=== PATIENT | male | born 1960 | race Caucasian/White ===

== ENCOUNTER 2017-12-19 09:12 | Emergency (ER) | payer OTHER ==
[2017-12-19 09:14] VITALS: BP 127/80
[2017-12-19] MEDS: Diphtheria,Pertussis(Acell),Tetanus Vaccine 0.5 ML SDV IM ONE (10:28)
--- NOTE | 2017-12-19 10:49 | EDM.PDOC ---
ED HPI GENERAL MEDICAL PROBLEM - General Chief Complaint: Upper Extremity Injury/Pain Stated Complaint: Right finger injury Time Seen by Provider: 12/19/17 09:18 Source of Information: Reports: Patient History Limitations: Reports: No Limitations - History of Present Illness INITIAL COMMENTS - FREE TEXT/NARRATIVE: Patient got tip of right middle finger caught in press under a board just prior to presentation. Works at [employer]. Mild numbness to tip of finger. Able to flex and extend all joints of affected finger. Small laceration. Denies other injuries. Tetanus is outdated. No other complaints. Right 3-Middle finger Pain Score (Numeric/FACES): 2 - Related Data Allergies Allergy/AdvReac Type Severity Reaction Status Date / Time No Known Allergies Allergy Verified 12/19/17 09:15 Home Meds: Home Meds Cephalexin [Keflex] 250 mg PO Q8H #15 cap 12/19/17 [Rx] Past Medical History - Past Health History Medical/Surgical History: Denies Medical/Surgical History Social & Family History - Tobacco Use Smoking Status *Q: Never Smoker Second Hand Smoke Exposure: No - Caffeine Use Caffeine Use: Reports: None - Alcohol Use Alcohol Use History: No Alcohol Use in Last Twelve Months: No - Recreational Drug Use Recreational Drug Use: No Review of Systems - Review of Systems Review Of Systems: ROS reveals no pertinent complaints other than HPI. ED EXAM, GENERAL - Physical Exam Exam: See Below Exam Limited By: No Limitations General Appearance: Alert, WD/WN, No Apparent Distress Eye Exam: Bilateral Eye: EOMI, PERRL Head: Atraumatic, Normocephalic Neck: Supple Respiratory/Chest: No Respiratory Distress Extremities: Normal Range of Motion, Other (Tip of right middle finger has some bruising, including under nail. Nail intact. very small 5mm laceration/ superficial noted on pad of finger. Tendon function intact. Vascularly intact. No signs of trauma/tenderness rest of fingers/hand. ) Neurological: Alert, Oriented, Normal Cognition, Normal Gait, Other (mild subjective decrease sensation tip of right 3rd finger) Psychiatric: Normal Affect, Normal Mood Skin Exam: Warm, Dry, Ecchymosis ED TRAUMA EXTREMITY PROCEDURES - Laceration/Wound Repair right middle finger Lac/Wound Length In cm: 0.5 Appearance: Subcutaneous, Linear, Clean Distal NVT: Neuro & Vascular Intact, No Tendon Injury Skin Prep: Saline Exploration/Debridement/Repair: Wound Explored, In a Bloodless Field, Explored to Base, No Foreign Material Found Closed With: Dermabond Sterile Dressing Applied: Nurse Tetanus Status Addressed: Yes Complications: No Course - Vital Signs Last Recorded V/S: Last Vital Signs Temp 36.5 C 12/19/17 09:13 Pulse 71 12/19/17 09:13 Resp 18 12/19/17 09:13 BP 127/80 12/19/17 09:13 Pulse Ox 99 12/19/17 09:13 - Orders/Labs/Meds Orders: Active Orders 24 hr Category Date Time Status Vaccines to be Administered [RC] PER UNIT ROUTINE Care 12/19/17 10:10 Ordered Hand Comp Min 3V Rt [CR] Stat Exams 12/19/17 09:15 Taken Meds: Medications Discontinued Medications Generic Name Dose Route Start Last Admin Trade Name Freq PRN Reason Stop Dose Admin Diphtheria/Tetanus/Acell Pertussis 0.5 ml 12/19/17 10:10 12/19/17 10:28 Adacel IM 12/19/17 10:11 0.5 ml .ONCE ONE Administration - Re-Assessments/Exams Free Text/Narrative Re-Assessment/Exam: 12/19/17 11:07 Wound soaked. Xray confirmed non-displaced fracture of distal portion right middle digit. Dermabond used to close laceration. Finger tip splinted for protection of injured area. Patient will be placed on 5 days Keflex. Does have small laceration but this does not appear to be due to an "open" fracture. Tetanus updated. Wound care discussed. To follow up in one week at [facility] for recheck. Departure - Departure Time of Disposition: 10:42 Disposition: Home, Self-Care 01 Condition: Good Clinical Impression: Finger fracture, right Qualifiers: Encounter type: initial encounter Finger: middle finger Fracture type: closed Phalanx: distal Fracture alignment: nondisplaced Qualified Code(s): S62.662A - Nondisplaced fracture of distal phalanx of right middle finger, initial encounter for closed fracture Laceration of finger Qualifiers: Encounter type: initial encounter Finger: middle finger Damage to nail status: without damage Foreign body presence: without foreign body Laterality: right Qualified Code(s): S61.212A - Laceration without foreign body of right middle finger without damage to nail, initial encounter - Discharge Information Prescriptions: Cephalexin [Keflex] 250 mg PO Q8H #15 cap Instructions: Crush Injury of the Hand, [id number], Laceration Care, Adult, [id number] Referrals: Dixie Mckeon NP [Primary Care Provider] - Forms: ED Department Discharge Additional Instructions: Keep area clean/dry for next 5 days while skin is healing. Wear splint for protection for next 1-3 weeks to help avoid re-injuring area. Follow up for recheck next Tuesday with your primary clinic. Follow up otherwise as needed. Ice/elevation/Tylenol/Ibuprofen as needed for pain. Follow up if any signs of infection are noted. - My Orders Last 24 Hours: My Active Orders 12/19/17 09:15 Hand Comp Min 3V Rt [CR] Stat 12/19/17 10:10 Vaccines to be Administered [RC] PER UNIT ROUTINE - Assessment/Plan Last 24 Hours: My Active Orders 12/19/17 09:15 Hand Comp Min 3V Rt [CR] Stat 12/19/17 10:10 Vaccines to be Administered [RC] PER UNIT ROUTINE
== END 2017-12-19 11:55 | disposition home or self-care (01) ==
LOC: LL.ED 09:12
DX: S62.662A Nondisplaced fracture of distal phalanx of right middle finger, initial encounter for closed fracture (principal); S61.212A Laceration without foreign body of right middle finger without damage to nail, initial encounter; Z23 Encounter for immunization; W23.0XXA Caught, crushed, jammed, or pinched between moving objects, initial encounter
CPT/HCPCS: 12001; 73130-RT; 90471; 90715; 99283

== ENCOUNTER 2017-12-22 18:59 | Emergency (ER) | payer OTHER ==
[2017-12-22 19:05] VITALS: BP 128/81
[2017-12-22] MEDS: Bacitracin/Neomycin/Polymyxin B Oint 0.9 GM U/D Packet TOP ONE (19:33)
--- NOTE | 2017-12-22 19:39 | EDM.PDOC ---
ED HPI GENERAL MEDICAL PROBLEM - General Chief Complaint: General Stated Complaint: R 3 DIGIT SWELLING Time Seen by Provider: 12/22/17 19:15 Source of Information: Reports: Patient History Limitations: Reports: No Limitations - History of Present Illness INITIAL COMMENTS - FREE TEXT/NARRATIVE: Patient is a 57-year-old who had a crush injury to the right third finger distal aspect was seen in the ER at that time and treated at this time he noticed some pus coming out of the wound so he came in for evaluation and treatment Onset: Today Duration: Day(s): (3 days ago) Location: Reports: Upper Extremity, Right (Third finger) Quality: Reports: Pressure Severity: Moderate Improves with: Reports: Rest, Other Worsens with: Reports: None Context: Reports: Trauma Associated Symptoms: Reports: No Other Symptoms - Related Data Allergies Allergy/AdvReac Type Severity Reaction Status Date / Time No Known Allergies Allergy Verified 12/22/17 19:05 Home Meds: Home Meds Cephalexin [Keflex] 250 mg PO Q8H #15 cap 12/19/17 [Rx] Past Medical History - Past Health History Medical/Surgical History: Denies Medical/Surgical History Social & Family History - Tobacco Use Smoking Status *Q: Never Smoker - Caffeine Use Caffeine Use: Reports: None ED ROS GENERAL - Review of Systems Review Of Systems: ROS reveals no pertinent complaints other than HPI. ED EXAM, GENERAL - Physical Exam Exam: See Below Exam Limited By: No Limitations General Appearance: Alert, WD/WN, No Apparent Distress Ears: Normal External Exam, Normal Canal, Hearing Grossly Normal, Normal TMs Nose: Normal Inspection, Normal Mucosa, No Blood Throat/Mouth: Normal Inspection, Normal Lips, Normal Teeth, Normal Gums, Normal Oropharynx, Normal Voice, No Airway Compromise Head: Atraumatic, Normocephalic Neck: Normal Inspection, Supple, Non-Tender, Full Range of Motion Respiratory/Chest: No Respiratory Distress, Lungs Clear, Normal Breath Sounds, No Accessory Muscle Use, Chest Non-Tender Cardiovascular: Normal Peripheral Pulses, Regular Rate, Rhythm, No Edema, No Gallop, No JVD, No Murmur, No Rub GI/Abdominal: Normal Bowel Sounds, Soft, Non-Tender, No Organomegaly, No Distention, No Abnormal Bruit, No Mass (Male) Exam: No Hernia, Normal Inspection, Normal Prostate, Circumcised Rectal (Males) Exam: Deferred Back Exam: Normal Inspection, Full Range of Motion, NT Extremities: Normal Inspection, Normal Range of Motion, Non-Tender, Normal Capillary Refill, No Pedal Edema Neurological: Alert, Oriented, CN II-XII Intact, Normal Cognition, Normal Gait, Normal Reflexes, No Motor/Sensory Deficits Psychiatric: Normal Affect, Normal Mood Skin Exam: Warm, Dry, Intact, Normal Color, No Rash Course - Vital Signs Last Recorded V/S: Last Vital Signs Temp 98.4 F 12/22/17 19:00 Pulse 87 12/22/17 19:00 Resp 16 12/22/17 19:00 BP 128/81 12/22/17 19:00 Pulse Ox 98 12/22/17 19:00 - Orders/Labs/Meds Meds: Medications Discontinued Medications Generic Name Dose Route Start Last Admin Trade Name Freq PRN Reason Stop Dose Admin Neomycin/Polymyxin/Bacitracin 1 each 12/22/17 19:22 Triple Antibiotic Oint TOP 12/22/17 19:23 ONETIME ONE Departure - Departure Time of Disposition: 19:40 Disposition: Home, Self-Care 01 Condition: Good Clinical Impression: Crushing injury of other finger, subsequent encounter - Discharge Information Referrals: Dixie Mckeon NP [Primary Care Provider] - Care Plan Goals: This time patient was seen using a 18-gauge needle we removed some of the Dermabond noted that there was minimal pus we cleaned the area and then dressed it with a Band-Aid patient is to keep it dressed for the next 2 weeks until this heals. Follow-up with primary if not improving continue antibiotics until finished
== END 2017-12-22 19:45 | disposition home or self-care (01) ==
LOC: LL.ED 18:59
DX: S67.192D Crushing injury of right middle finger, subsequent encounter (principal); X58.XXXD Exposure to other specified factors, subsequent encounter
CPT/HCPCS: 99283

== ENCOUNTER 2019-03-20 13:35 | Emergency (ER) | payer OTHER ==
[2019-03-20 13:51] VITALS: BP 122/78; PULSE 84
--- NOTE | 2019-03-20 13:57 | EDM.PDOC ---
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 no bleeding at this time bleeding was controlled with pressure Onset: Today Duration: Minutes:, Constant Location: Reports: Lower Extremity, Right Quality: Reports: Ache Severity: Moderate Improves with: Reports: Rest Worsens with: Reports: None Associated Symptoms: Reports: No Other Symptoms - Related Data Allergies Allergy/AdvReac Type Severity Reaction Status Date / Time No Known Allergies Allergy Verified 03/20/19 13:47 Home Meds: Home Meds Cetirizine HCl [Zyrtec] 10 mg PO DAILY PRN 03/20/19 [History] Past Medical History - Past Health History Medical/Surgical History: Denies Medical/Surgical History Social & Family History - Caffeine Use Caffeine Use: Reports: None ED ROS GENERAL - Review of Systems Review Of Systems: See Below Constitutional: Reports: No Symptoms HEENT: Reports: No Symptoms Respiratory: Reports: No Symptoms Cardiovascular: Reports: No Symptoms Endocrine: Reports: No Symptoms GI/Abdominal: Reports: No Symptoms : Reports: No Symptoms Musculoskeletal: Reports: No Symptoms Skin: Reports: No Symptoms Neurological: Reports: No Symptoms Psychiatric: Reports: No Symptoms Hematologic/Lymphatic: Reports: No Symptoms Immunologic: Reports: No Symptoms ED EXAM, SKIN/RASH Exam: See Below Exam Limited By: No Limitations General Appearance: Alert, WD/WN, No Apparent Distress Ears: Normal External Exam, Normal Canal, Hearing Grossly Normal, Normal TMs Nose: Normal Inspection, Normal Mucosa, No Blood Throat/Mouth: Normal Inspection, Normal Lips, Normal Teeth, Normal Gums, Normal Oropharynx, Normal Voice, No Airway Compromise Head: Atraumatic, Normocephalic Neck: Normal Inspection, Supple, Non-Tender, Full Range of Motion Respiratory/Chest: No Respiratory Distress, Lungs Clear, Normal Breath Sounds, No Accessory Muscle Use, Chest Non-Tender Cardiovascular: Normal Peripheral Pulses, Regular Rate, Rhythm, No Edema, No Gallop, No JVD, No Murmur, No Rub GI/Abdominal: Normal Bowel Sounds (Male) Exam: Circumcised, Deferred Rectal (Males) Exam: Deferred Back Exam: Normal Inspection, Full Range of Motion, NT Extremities: Normal Inspection, Normal Range of Motion, Non-Tender, No Pedal Edema, Normal Capillary Refill Neurological: Alert, Oriented, CN II-XII Intact, Normal Cognition, Normal Gait, Normal Reflexes, No Motor/Sensory Deficits Psychiatric: Normal Affect, Normal Mood Skin: Wound/Incision (Laceration right fourth distal metacarpal half a centimeter full-thickness) Location, Skin: Upper Extremity, Right (Laceration right fourth distal metacarpal area 1 cm by half a centimeter full-thickness) Characteristics: Linear Lymphatic: No Adenopathy ED SKIN PROCEDURES - Laceration/Wound Repair Right Distal Digit - 4th (Ring) Appearance: Superficial, Linear, Clean Distal NVT: Neuro & Vascular Intact Skin Prep: Chlorhexidine (Hibiciens) Exploration/Debridement/Repair: In a Bloodless Field Closed with: Sutures Lac/Wound length In cm: 0.5 Suture Size: 4-0 # of Sutures: 1 Suture Type: Nylon, Interrupted (Laceration was half a centimeter by 0.5 cm full -thickness over the knuckle 1 suture placed) Course - Vital Signs Last Recorded V/S: Last Vital Signs Temp 98.4 F 03/20/19 13:35 Pulse 84 03/20/19 13:35 Resp 18 03/20/19 13:35 BP 122/78 03/20/19 13:35 Pulse Ox 99 03/20/19 13:35 Departure - Departure Time of Disposition: 13:59 Disposition: Home, Self-Care 01 Condition: Good Clinical Impression: Broken skin - Discharge Information *PRESCRIPTION DRUG MONITORING PROGRAM REVIEWED*: No *COPY OF PRESCRIPTION DRUG MONITORING REPORT IN PATIENT JULIA: No Care Plan Goals: Patient is to return in 10 days for suture removal apply Neosporin at home
[2019-03-20] MEDS ORDERED: Bacitracin/Neomycin/Polymyxin B Oint 0.9 GM U/D Packet TOP ONE (14:00)
[2019-03-20] MEDS ORDERED: Bacitracin/Neomycin/Polymyxin B Oint 0.9 GM U/D Packet ONE (14:02)
== END 2019-03-20 14:16 | disposition home or self-care (01) ==
LOC: LL.ED 13:35
DX: S61.214A Laceration without foreign body of right ring finger without damage to nail, initial encounter (principal); Z79.899 Other long term (current) drug therapy; W26.8XXA Contact with other sharp object(s), not elsewhere classified, initial encounter
CPT/HCPCS: 12001; 99282

== ENCOUNTER 2022-01-15 15:43 | Emergency (ER) | payer OTHER, BC ==
[2022-01-15] MEDS ORDERED: Ketorolac 30 MG/ML SDV IM ONE (15:55)
[2022-01-15 17:06] VITALS: BP 161/91; PULSE 74
== END 2022-01-15 17:40 | disposition home or self-care (01) ==
LOC: LL.ED 15:43
DX: S06.0X9A Concussion with loss of consciousness of unspecified duration, initial encounter (principal); M25.512 Pain in left shoulder; M54.2 Cervicalgia; W22.8XXA Striking against or struck by other objects, initial encounter
CPT/HCPCS: 70450; 72125; 96372; 99284; J1885

== ENCOUNTER 2024-01-29 13:27 | Emergency (ER) | payer BC, OTHER ==
[2024-01-29 13:29] VITALS: BP 151/83; PULSE 85
[2024-01-29 13:45] LABS: BASOPHILS ABSOLUTE AUTO 0.02 K/uL (0.00-0.20); BASOPHILS PERCENT AUTO 0.3 % (0.0-2.0); EOSINOPHILS ABSOLUTE AUTO 0.17 K/uL (0.00-0.50); EOSINOPHILS PERCENT AUTO 2.2 % (0.0-5.0); HEMATOCRIT 42.9 % (39.0-49.0); HEMOGLOBIN 14.6 g/dL (13.1-16.8); LYMPHOCYTES ABSOLUTE AUTO 1.57 K/uL (0.50-3.50); LYMPHOCYTES PERCENT AUTO 20.3 % (10.0-50.0); MEAN CORPUSCULAR HEMOGLOBIN 30.3 pg (28.2-33.3); MONOCYTES ABSOLUTE AUTO 0.78 K/uL (0.00-1.00); MONOCYTES PERCENT AUTO 10.1 % (2.0-14.0); NEUTROPHILS ABSOLUTE AUTO 5.19 K/uL (1.40-7.00); NEUTROPHILS PERCENT AUTO 67.1 % (45.0-80.0); PLATELET COUNT,PLT 291 K/uL (150-350); RED BLOOD CELL COUNT 4.82 M/uL (4.33-5.41); RED CELL DISTRIBUTION WIDTH 13.4 % (11.2-14.1); WHITE BLOOD CELL COUNT,WBC 7.7 K/uL (4.0-10.2)
[2024-01-29 13:57] LABS: BLOOD UREA NITROGEN,BUN 15 mg/dL (7-18); CALCIUM 9.4 mg/dL (8.5-10.1); CARBON DIOXIDE,CO2 32.2 mmol/L (21.0-32.0); CHLORIDE,CL 103 mmol/L (98-107); CREATININE 0.92 mg/dL (0.51-1.17); GLUCOSE RANDOM 93 mg/dL (70-99); MAGNESIUM 1.7 mg/dL (1.8-2.4); POTASSIUM,K 5.1 mmol/L (3.5-5.1); SODIUM,NA 140 mmol/L (136-145)
[2024-01-29 13:58] LABS: ANION GAP 9.9 meq/L (7-15); ESTIMATED GFR 95 mL/min (>=60)
[2024-01-29] MEDS: traMADol 50 MG Tab PO ONE (14:07)
[2024-01-29] MEDS: Ketorolac 30 MG/ML SDV IM ONE (14:08)
[2024-01-29] MEDS: Cyclobenzaprine 10 MG Tab PO ONE (14:08)
[2024-01-29] MEDS: Take Home: Orphenadrine 100 MG Tab.ER, 4 Tab Pack PO ONE (14:42)
[2024-01-29] MEDS: Magnesium Oxide 400 MG Tab PO ONE (14:42)
[2024-01-29] MEDS: Take Home: traMADol 50 MG, 4 Tab Pack PO ONE (14:42)
== END 2024-01-29 14:48 | disposition home or self-care (01) ==
LOC: LL.ED 13:27
DX: M43.6 Torticollis (principal); E83.42 Hypomagnesemia; Z79.899 Other long term (current) drug therapy; Z87.891 Personal history of nicotine dependence
CPT/HCPCS: 36415; 80048; 83735; 85025; 96372; 99283; A9270-GY; J1885

== ENCOUNTER 2025-04-25 07:38 | Day surgery (SDC) | payer BC ==
[~2025-04-25 07:38] MED LIST: Midazolam 1 MG/ML 2 ML SDV ONE; Propofol 200 MG/20 ML SDV ONE
[2025-04-25] MEDS ORDERED: Sodium Chloride 0.9% 10 ML Syringe FLUSH PRN (08:00)
[2025-04-25] MEDS: Lactated Ringers 1,000 ML IV SCH (08:17)
[2025-04-25 09:52] VITALS: BP 114/62; PULSE 77
== END 2025-04-25 10:13 | disposition home or self-care (01) ==
LOC: LL.SDS 07:38
PROVIDERS: ATTEND Surgery
DX: Z12.11 Encounter for screening for malignant neoplasm of colon (principal); Z87.891 Personal history of nicotine dependence
CPT/HCPCS: J7120